=== PATIENT | male | born 1950 | race Two or more races ===

== ENCOUNTER 2021-04-06 16:48 | Emergency (ER) | payer OTHER, SELFPAY ==
--- NOTE | ~2021-04-06 | XR_ITS ---
EXAMINATION: XR CHEST CLINICAL INFORMATION: Bilateral lower extremity swelling. COMPARISON: 10/07/2010 TECHNIQUE: 2 views of the chest were obtained. FINDINGS: Rotated positioning. Prominence of the mediastinal silhouette, likely related to positioning/technique. Heart size within normal limits. Similar elevation of the right hemidiaphragm. Right basilar opacification. Left lung is clear. No pulmonary edema. Thoracic spine degeneration. XR/XR chest 2V IMPRESSION: Right basilar opacity which could reflect atelectasis or infiltrate. Small right pleural effusion is difficult exclude.
--- NOTE | 2021-04-06 16:57 | ECG_ITS ---
Test Reason : LEG PAIN Blood Pressure : / mmHG Vent. Rate : 085 BPM Atrial Rate : 085 BPM P-R Int : 264 ms QRS Dur : 146 ms QT Int : 404 ms P-R-T Axes : 057 -22 081 degrees QTc Int : 480 ms Sinus rhythm with 1st degree A-V block with Premature ventricular complexes Left bundle branch block Abnormal ECG When compared with ECG of 07-OCT-2010 18:01, Premature ventricular complexes is now Present TX interval has increased Left bundle branch block is now Present Criteria for Septal infarct are no longer Present Criteria for Inferior infarct are no longer Present Referred By: Sarah Fulton Electronically Signed By:KEVIN CERVANTES MD
--- NOTE | 2021-04-06 17:01 | ED.EXTPRO ---
HPI - Extremity Problem General Chief complaint: Extremity Problem Stated complaint: LEG SWELLING Source: patient Mode of arrival: ambulatory Limitations: no limitations History of Present Illness HPI Narrative: 70-year-old male with past medical history of hypertension, hyperlipidemia, anxiety, depression, GERD, edema, obesity, COPD O2 dependent, presents with chronic bilateral lower extremity edema that has gotten worse over the past several weeks. States that he is more short of breath when he walks. He does take hydrochlorothiazide and does report taking his medication on daily basis. Does not report any chest pressure or pain, palpitations, abdominal pain, abdominal distention, nausea, vomiting, diarrhea, constipation, dysuria, hematuria, melena, hematochezia, Fevers, chills, or any other concerning symptoms. MD Complaint: extremity swelling Onset (ago): year(s) Pain Consistency: constant Location: left, right and lower extremity Severity scale (1-10): 7 Quality: aching Radiation: none Relieving factors: nothing Exacerbating factors: walking, exertion and palpation Associated symptoms: denies other symptoms Related Data Previous Rx's Medication Instructions Recorded furosemide [Lasix] 20 mg PO DAILY #15 tab 04/06/21 Allergies Allergy/AdvReac Type Severity Reaction Status Date / Time Penicillins [PENICILLINS] Allergy Unknown UNKNOWN Unverified 06/21/20 18:03 Review of Systems Review of Systems: Constitutional: No Fever, No Chills ENT/Mouth: No Ear Pain, No Hoarseness, No sore throat Eyes: No Eye Pain, No Swelling, No Redness, No Foreign Body Cardiovascular : positive edema, No Chest Pain, No SOB Respiratory: No Cough, No Dyspnea Gastrointestinal: No Nausea, No Vomiting, No Diarrhea, No abdominal Pain Genitourinary: No Dysuria, No Hematuria Musculoskeletal: positive bilateral lower extremity pain, No Myalgias, No Joint Swelling Skin: No Skin lacerations, No rash Neuro: No Weakness, No Numbness, No Paresthesias, No Loss of Consciousness, No Dizziness, No Headache Psych: No Anxiety/Panic, No Depression Heme/Lymph: no easy bruising, no Lymphadenopathy Endocrine: No Polyuria, No Polydipsia Yes all other systems are reviewed and are negative PMFSH Past Medical History Attestation statement: The following information was validated with the patient. Source: old records reviewed Social History Social History Patient Tobacco Use Status: Former Tobacco user Use of substances other than those prescribed or required for medical reasons: No Advance Directives: No Advance Directives Information Provided: Yes Physical Exam Vital Signs: Vital Signs: Last Vital Signs Temp 97.6 F 04/06/21 20:31 Pulse 89 04/06/21 20:57 Resp 16 04/06/21 20:57 BP 129/60 04/06/21 20:57 Pulse Ox 97 04/06/21 20:57 Oxygen Flow Rate 2 04/06/21 17:12 Body Mass Index 49.0 Appearance: Alert. Oriented X3. No acute distress. Eyes: Pupils equal, round and reactive to light. ENT: Pharynx normal. Neck: Normal inspection. Neck supple. CVS: Normal heart rate and rhythm. Pulses normal. Respiratory: No respiratory distress. Lung sounds clear to auscultation all lobes Abdomen: Soft and nontender. obese Skin: Skin warm and dry. Normal skin color. Normal skin turgor. Extremities: +4 pitting edema to bilateral lower extremities to mid thigh Neuro: No motor deficit. No sensory deficit. Course Course Course Narrative: 70-year-old male presents with bilateral lower extremity edema that has been chronic. States that swelling has gotten worse. Will order ACS workup with BNP. Will give Lasix 40 mg IV. BNP is negative, chest x-ray negative for acute findings requiring emergent intervention, ACS workup negative. Plan of care is to have patient follow-up with primary care physician as he may need medication stronger than hydrochlorothiazide for diuresis. I will prescribe Lasix 20 mg daily and for 15 days to ensure that patient does follow-up with PCP within the next 2 weeks. Patient and patient's family verbalized understanding of and agrees to plan of care discharge home. internal controls specialist utilized for all correspondence, Google translate utilize For discharge instructions. MDM - Extremity (Nontraumatic) MDM Narrative Medical decision making narrative: edema Differential Diagnosis Differential diagnosis: Likely cellulitis Medical Records Attestation: I reviewed the patient's medical records. Lab Data Attestation: I reviewed the patient's lab results. Result diagrams: 04/06/21 17:49 04/06/21 17:49 Labs: Lab Results 04/06/21 04/06/21 04/06/21 Range/Units 17:49 17:49 17:49 WBC 6.4 (4.8-10.8) X10*3/uL RBC 3.78 L (4.60-5.80) X10*6/uL Hgb 11.0 L (14.0-18.0) g/dl Hct 36.5 L (42-52) % MCV 96.6 (80-98) fL MCH 29.1 (27.0-33.0) pg MCHC 30.1 L (31.0-36.0) g/dl RDW 13.7 (11.0-16.0) % Plt Count 197 (160-400) X10*3/uL MPV 8.7 L (9.4-12.4) fL Immature Gran % (Auto) 0.5 H (0.0-0.4) % Neut % (Auto) 72.8 (45-73) % Lymph % (Auto) 14.4 L (20-40) % [place]at % (Auto) 10.0 (2-11) % Eos % (Auto) 2.0 (0-4) % Baso % (Auto) 0.3 (0-2) % Lymph # (Auto) 0.9 L (1.2-4.9) X10*3/uL [place]at # (Auto) 0.6 (0.1-1.2) X10*3/uL Eos # (Auto) 0.1 (0.0-0.4) X10*3/uL Baso # (Auto) 0.0 (0.0-0.2) X10*3/uL Abs Immat Gran (auto) 0.03 (0.00-0.03) X10*3/uL Absolute Neuts (auto) 4.7 (2.0-8.3) X10*3/uL Absolute Nucleated RBC 0.000 (0.0-0.012) X10*3/uL Nucleated RBC % (auto) 0.0 (0.0-0.2) /100WBC PT 15.0 H (9.9-13.0) SEC INR 1.3 H (0.9-1.1) APTT 32.4 (24.1-38.0) SEC Sodium 141 (135-145) mmol/L Potassium 4.3 (3.3-5.1) mmol/L Chloride 99 (96-108) mmol/L Carbon Dioxide 33 H (22-29) mmol/L Anion Gap 13 (12-20) BUN 15 (9-16) mg/dL Creatinine 1.00 (0.5-1.4) mg/dL Estim Creat Clear Calc 93.7 Estimated GFR > 60 Random Glucose 90 (60-115) mg/dL Calcium 8.8 (8.4-10.2) mg/dL Total Bilirubin 0.4 (0.0-1.0) mg/dL Direct Bilirubin < 0.2 (0.0-0.5) mg/dL AST 20 (5-37) U/L ALT 12 (0-40) U/L Alkaline Phosphatase 94 (39-117) U/L Troponin I High Sens (<3.5-35.0) ng/L B-Natriuretic Peptide (<100) pg/mL Total Protein 6.7 (6.5-8.0) g/dL Albumin 3.7 (3.5-5.0) g/dL Lipase 23 (8-78) U/L Urine Color Urine Appearance Urine pH (5.0-8.0) Ur Specific [place] (1.005-1.025) Urine Protein (NEG-TRACE) MG/DL Urine Glucose (UA) (NEG) MG/DL Urine Ketones (NEG) MG/DL Urine Blood (NEG) Urine Nitrite (NEG) Ur Leukocyte Esterase (NEG) 04/06/21 04/06/21 Range/Units 17:49 20:33 WBC (4.8-10.8) X10*3/uL RBC (4.60-5.80) X10*6/uL Hgb (14.0-18.0) g/dl Hct (42-52) % MCV (80-98) fL MCH (27.0-33.0) pg MCHC (31.0-36.0) g/dl RDW (11.0-16.0) % Plt Count (160-400) X10*3/uL MPV (9.4-12.4) fL Immature Gran % (Auto) (0.0-0.4) % Neut % (Auto) (45-73) % Lymph % (Auto) (20-40) % [place]offat % (Auto) (2-11) % Eos % (Auto) (0-4) % Baso % (Auto) (0-2) % Lymph # (Auto) (1.2-4.9) X10*3/uL [place] # (Auto) (0.1-1.2) X10*3/uL Eos # (Auto) (0.0-0.4) X10*3/uL Baso # (Auto) (0.0-0.2) X10*3/uL Abs Immat Gran (auto) (0.00-0.03) X10*3/uL Absolute Neuts (auto) (2.0-8.3) X10*3/uL Absolute Nucleated RBC (0.0-0.012) X10*3/uL Nucleated RBC % (auto) (0.0-0.2) /100WBC PT (9.9-13.0) SEC INR (0.9-1.1) APTT (24.1-38.0) SEC Sodium (135-145) mmol/L Potassium (3.3-5.1) mmol/L Chloride (96-108) mmol/L Carbon Dioxide (22-29) mmol/L Anion Gap (12-20) BUN (9-16) mg/dL Creatinine (0.5-1.4) mg/dL Estim Creat Clear Calc Estimated GFR Random Glucose (60-115) mg/dL Calcium (8.4-10.2) mg/dL Total Bilirubin (0.0-1.0) mg/dL Direct Bilirubin (0.0-0.5) mg/dL AST (5-37) U/L ALT (0-40) U/L Alkaline Phosphatase (39-117) U/L Troponin I High Sens < 3.5 (<3.5-35.0) ng/L B-Natriuretic Peptide < 10 (<100) pg/mL Total Protein (6.5-8.0) g/dL Albumin (3.5-5.0) g/dL Lipase (8-78) U/L Urine Color YELLOW Urine Appearance CLEAR Urine pH 6.5 (5.0-8.0) Ur Specific [place] <= 1.005 (1.005-1.025) Urine Protein NEG (NEG-TRACE) MG/DL Urine Glucose (UA) NEG (NEG) MG/DL Urine Ketones NEG (NEG) MG/DL Urine Blood NEG (NEG) Urine Nitrite NEG (NEG) Ur Leukocyte Esterase NEG (NEG) Imaging Data Chest x-ray: Attestation: I personally reviewed and interpreted this imaging study as follows: Radiologist's impression: EXAMINATION: XR CHEST CLINICAL INFORMATION: Bilateral lower extremity swelling. COMPARISON: 10/07/2010 TECHNIQUE: 2 views of the chest were obtained. FINDINGS: Rotated positioning. Prominence of the mediastinal silhouette, likely related to positioning/technique. Heart size within normal limits. Similar elevation of the right hemidiaphragm. Right basilar opacification. Left lung is clear. No pulmonary edema. Thoracic spine degeneration. XR/XR chest 2V IMPRESSION: Right basilar opacity which could reflect atelectasis or infiltrate. Small right pleural effusion is difficult exclude. ECG Data ECG interpretation date: 04/06/21 ECG interpretation time: 18:11 Interpretation: ventricular rate 85 beats per minute, NV 264, QRS 1 46, QT 404, QTC 480, sinus rhythm with first-degree AV block with PACs left bundle-branch block no indication of ST depression or elevation indicating ischemia. Prior EKG is unavailable secondary to system 130 error Scores Heart Score History: -1- moderately suspicious ECG: -1- non specific repolarization disturbance Age: -1- >45 - <65 Risk factory: -1- 1 or 2 risk factors Troponin: -0- < or = normal limit Score: 4 Risk: 16.6% Discharge Plan Discharge Clinical Impression: Lower extremity edema Patient Disposition: Home, Self-Care Instructions: Edema (ED) Additional Instructions: se le evalu? por edema bilateral de las extremidades inferiores. Debe hacer un seguimiento con belle m?dico de atenci?n primaria para obtener medicamentos diur?ticos. La hidroclorotiazida que le recetan no es eficaz. Le recetamos Lasix 20 mg todas las ma?anas esther los siguientes 15 d?as. Debe hacer un seguimiento con belle atenci?n primaria dentro de estos 15 d?as. Necesitar? m?s Lasix u otro medicamento diur?genny. Karla por elegir heber departamento de emergencias para belle evaluaci?n. Emerald un seguimiento con belle m?dico de atenci?n primaria seg?n sea necesario. Regrese al departamento de emergencias por cualquier s?ntoma nuevo, preocupante o que empeore. you were evaluated for bilateral lower extremity edema. You need to follow-up with your primary care physician for diuretic medication. The hydrochlorothiazide that you are prescribed is not effective. We prescribed Lasix 20 mg every morning for the next 15 days. You must follow-up with Your primary care within these 15 days. You will need more Lasix or other diuretic medication. Thank you for choosing this emergency department for evaluation. Please follow-up with primary care physician as needed. Return to the emergency department for any new, concerning, or worsening symptoms. Prescriptions: New furosemide [Lasix] 20 mg tablet 20 mg PO DAILY Qty: 15 RF: 0 Interventions: ED Discharge Assessment Last Done: 04/06/21 21:35 Discharge Date/Time: 04/06/21 21:36
[2021-04-06 17:12] VITALS: BP 127/73; PULSE 89; RESP 20; TEMP 36.9; O2SAT 100; BMI 49.0
--- NOTE | 2021-04-06 17:30 | PC.NURSE ---
Addendum entered by Mark Shaffer RN 04/06/21 18:27: Pt reports having ble redness, swelling, pain starting months ago but got worse since yesterday. The pt has hx of COPD and cellulitis. He also reports sob since yesterday. Pt is on 2L NC at home, current O2sat is 100% on 2L NC. no sob/respiratory distress noted. He is on eliquis and hydrochlorothiazide at home. There is swelling and redness present, pt c/o pain with touch. 3+ edema to ble, faint pedal pulse bilaterally. IV line established, med given as documented. Pt resting quietly, son at bedside. Original Note: Pt alert and oriented x3,
[2021-04-06 17:55] LABS: MANUAL DIFF FLAG NO
[2021-04-06] MEDS: Furosemide 40 MG/4 ML VIAL IVPUSH (17:55)
[2021-04-06 17:57] LABS: Basophils Percent Auto 0.3 % (0-2); Eosinophils Absolute Auto 0.1 X10*3/uL (0.0-0.4); Hematocrit 36.5 % (42-52); Imm Gran Abs Auto 0.03 X10*3/uL (0.00-0.03); Imm Gran Pct Auto 0.5 % (0.0-0.4); Lymphocytes Absolute Auto 0.9 X10*3/uL (1.2-4.9); Lymphocytes Percent Auto 14.4 % (20-40); Mean Corpuscular HGB Conc 30.1 g/dl (31.0-36.0); Mean Corpuscular Hemoglobin 29.1 pg (27.0-33.0); Mean Corpuscular Volume 96.6 fL (80-98); Mean Platelet Volume 8.7 fL (9.4-12.4); Monocytes Absolute Auto 0.6 X10*3/uL (0.1-1.2); Neutrophils Absolute Auto 4.7 X10*3/uL (2.0-8.3); Neutrophils Percent Auto 72.8 % (45-73); Platelet Count 197 X10*3/uL (160-400); Red Blood Count 3.78 X10*6/uL (4.60-5.80); Red Cell Distribution Width 13.7 % (11.0-16.0); White Blood Count 6.4 X10*3/uL (4.8-10.8)
[2021-04-06 18:09] LABS: INTERNATIONAL NORM RATIO 1.3 (0.9-1.1)
[2021-04-06 18:12] LABS: Partial Thromboplastin Time 32.4 SEC (24.1-38.0)
[2021-04-06 18:18] VITALS: BP 116/50; PULSE 86; RESP 17; TEMP 36.9; O2SAT 100
[2021-04-06 18:34] LABS: Alanine Aminotransferase 12 U/L (0-40); Albumin Level 3.7 g/dL (3.5-5.0); Alkaline Phosphatase 94 U/L (39-117); Anion Gap 13 (12-20); Aspartate Amino Transferase 20 U/L (5-37); Bilirubin Direct < 0.2 mg/dL (0.0-0.5); Bilirubin Total 0.4 mg/dL (0.0-1.0); Blood Urea Nitrogen 15 mg/dL (9-16); Calcium 8.8 mg/dL (8.4-10.2); Carbon Dioxide 33 mmol/L (22-29); Chloride 99 mmol/L (96-108); Creatinine Clr Calc Pharmacy 93.7; Estimated Glomerular Filt Rate > 60; Glucose Random 90 mg/dL (60-115); Lipase 23 U/L (8-78); Potassium 4.3 mmol/L (3.3-5.1); Sodium 141 mmol/L (135-145); Total Protein 6.7 g/dL (6.5-8.0)
[2021-04-06 18:37] LABS: B Type Natriuretic Peptide < 10 pg/mL (<100); Troponin-I High Sensitivity < 3.5 ng/L (<3.5-35.0)
[2021-04-06 20:31] VITALS: BP 142/72; PULSE 92; RESP 18; TEMP 36.4; O2SAT 94
[2021-04-06 20:57] VITALS: BP 129/60; PULSE 89; RESP 16; O2SAT 97
[2021-04-06 21:05] LABS: Glucose Urine UA NEG (NEG); Leukocyte Esterase Urine NEG (NEG); Nitrite Urine NEG (NEG); PH 6.5 (5.0-8.0); Specific Gravity - Urine <= 1.005 (1.005-1.025); Urine Blood NEG (NEG); Urine Ketones NEG (NEG); Urine Protein NEG (NEG-TRACE)
[2021-04-06 21:23] LABS: Appearance Urine CLEAR; Color Urine YELLOW
== END 2021-04-06 21:36 | disposition home or self-care (01) ==
PROVIDERS: Nurse Practitioner Family; Emergency Provider Internal Medicine; PCP Nurse Practitioner Family
DX: R60.0 Localized edema (principal); R06.02 Shortness of breath; I10 Essential (primary) hypertension; J44.9 Chronic obstructive pulmonary disease, unspecified; Z99.81 Dependence on supplemental oxygen
CPT/HCPCS: 36415; 71046; 80048; 80076; 81003; 83690; 83880; 84484; 85025; 85610; 85730; 93005; 96374; 99284; J1940